=== PATIENT | male | born 1935 | race Caucasian/White ===

== ENCOUNTER 2020-03-29 11:11 | Emergency (ER) | payer MEDICARE, OTHER ==
[~2020-03-29] VITALS: Ht 175.3 cm; Wt 98.2 kg
[~2020-03-29 11:11] MED LIST: ALOG12.52 PO; AMIO200T61 PO; ASPI-845 PO; CARB-268 OP; FAMO40TA7 PO; GABA-532 PO; INSU100C4 SQ; INSU100V12 SQ; LISI-600 PO; METF-436 PO; METO25TA6 PO; ROSU40TA PO; TRAM50TA2 PO
== END 2020-03-29 12:21 | disposition home or self-care (01) ==
LOC: ER 11:12
DX: B34.9 Viral infection, unspecified (principal); Z20.828 Contact with and (suspected) exposure to other viral communicable diseases; I10 Essential (primary) hypertension; E11.9 Type 2 diabetes mellitus without complications; Z98.890 Other specified postprocedural states; Z79.82 Long term (current) use of aspirin; Z79.84 Long term (current) use of oral hypoglycemic drugs; Z79.899 Other long term (current) drug therapy
CPT/HCPCS: 36415; 87635; 99283

== ENCOUNTER 2024-11-11 02:54 | Emergency (ER) | payer MEDICARE, OTHER ==
[~2024-11-11] VITALS: Ht 175.3 cm; Wt 90.0 kg
[~2024-11-11 02:54] MED LIST changes: +ALBU90AE INH; -AMIO200T61 PO; -ASPI-845 PO; +EMPA10TA PO; +EZET10TA6 PO; -FAMO40TA7 PO; -GABA-532 PO; -LISI-600 PO; -METF-436 PO; -METO25TA6 PO; +PREG50CA65 PO; +SEMA1PEN3 SQ
--- NOTE | 2024-11-11 03:29 | ELECTROCARDIOGRAPH REPORT ---
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
[2024-11-11] MEDS: normal saline 1000ML IV soln IV ONE (03:38)
[2024-11-11] MEDS: CefTRIAXone 2gm/D5W 50ml BAG 50 ML IV ONE (03:41)
--- NOTE | 2024-11-11 03:44 | Physician Documentation ---
History of Present Illness ~ Chief Complaint: Vomiting w/diarrhea Stated Complaint: NAUSEA,VOMITING Time Seen by MD: 03:35 Primary Medical Doctor: [facility] Mode of Arrival: POV HPI Patient presents to the emergency room with nausea vomiting diarrhea. Onset of symptoms yesterday. Positive fevers. Denies sick contacts. Reports no blood in stools. Patient was found to be hypotensive by EMS and 250 cc of saline was administered with improvement of blood pressures. Patient endorses some degree of abdominal pain. Medication Reconciliation Allergies: Coded Allergies: No Known Allergies (Unverified , 11/11/24) Scheduled Alogliptin Benzoate (Alogliptin), 1 TAB PO DAILY, (Reported) Empagliflozin (Jardiance), 12.5 MG PO DAILY, (Reported) Ezetimibe (Zetia), 1 TAB PO DAILY, (Reported) Insulin Aspart (Novolog), 12 UNITS SQ TIDAC, (Reported) Insulin Detemir (Levemir), 24 UNIT SQ DAILY, (Reported) Pregabalin (Pregabalin), 1 CAPSULE PO BID, (Reported) Rosuvastatin Calcium* (Crestor*), 1 TAB PO DAILY, (Reported) Semaglutide (Ozempic), 1 MG SQ weekly, (Reported) Scheduled PRN Albuterol Sulfate (Proair Respiclick), 2 PUFFS INH Q4HPRN PRN for shortness of breath, (Reported) Carboxymethylcellulose Sodium (Artificial Tears), 1 DROP OP BID PRN for dry eyes, (Reported) Tramadol HCl (Tramadol HCl), 1 TABLET PO QID PRN for pain, (Reported) Past Medical History Past Medical History: Coronary Artery Disease, High Cholesterol, Hypertension, Diabetes Past Surgical History: orthopedic surgeries Patient History: Patient reports no known family medical history. Alcohol Use: None Drug Use: none Lives with: Spouse Lives In: Home Review of Systems All Other Systems at this time: Reviewed and Negative ROS All review of systems negative except as per HPI Physical Exam Vital Signs: RN Vital Signs have been reviewed: Yes, Temperature: 100.0, Source: Oral, Heart Rate: 80, Respiratory Rate: 16, BP: 89/47, Pulse Oximetry: 94, Weight: 90.000 General Appearance General: Patient is awake, alert, oriented x4 in no acute distress Head: Normocephalic and atraumatic. Eyes: Conjunctival normal. EOMI. PERRL. ENT: Mucous membranes dry. Neck: Supple, trachea is midline. Chest: Clear to auscultation bilaterally without rales, rhonchi, or wheezes. There is no accessory muscle use or retractions. Cardiac: RRR without murmurs, gallops, or rubs. Abd: Soft, nondistended, nontender, with normoactive bowel sounds. No guarding, rebound, or rigidity. Below exam by Dr. Campbell re-evaluation Appearance: HEENT: EOMI, PERRL, normal oropharynx without erythema or exudate, moist oral mucosa, head and face Atraumatic Neck: Trachea midline, supple Pulmonary: No respiratory distress, breath sounds equal, clear to auscultation Cardiac: RRR, no murmur, no rub, no gallop, no lower extremity edema Abdomen: NBS, soft, upper abdominal tenderness Extremities: Atraumatic, nontender Skin: Normal color, dry, no rash, normal perfusion Neuro: AAOx3, clear speech, no focal motor weakness Psych: Normal affect, normal speech, no evidence of hallucinations Progress Results/Orders Results/Orders Orders - PARAMJIT ROBLES MD Culture Blood (11/11/24 03:35) Chest,Single View (11/11/24 03:55) Ct Abdomen Pelvis (11/11/24 04:15) Ultrasound Of Abdomen (11/11/24 05:14) Completed Orders - PARAMJIT ROBLES MD Electrocardiogram (11/11/24 ) Cbc/Diff (11/11/24 03:35) MG (11/11/24 03:35) Chest,Single View (11/11/24 03:55) Normal Saline 1000ml (Sodium Chloride 10 (11/11/24 03:35) Procalcitonin (11/11/24 03:35) BMP (11/11/24 03:35) Lacticsepsis (11/11/24 03:35) Ceftriaxone 2gm/D5w 50ml Bag (Rocephin 2 (11/11/24 03:35) Troponin (Single) (11/11/24 03:46) Ct Abdomen Pelvis (11/11/24 04:15) Pathology Review (11/11/24 03:55) CMP (11/11/24 05:13) Piperacillin/Tazo 3.375gm/50ml (Zosyn 3. (11/11/24 05:15) Ultrasound Of Abdomen (11/11/24 05:14) Lactic,2hr (11/11/24 05:35) Norepinephrine 32mg/250ml Bag (Norepinep (11/11/24 06:00) Norepinephrine 8mg/ 250ml Ns (Norepineph (11/11/24 06:08) Ua W/Microscopic, Cult If Ind (11/11/24 09:30) Vital Signs 11/11/24 11/11/24 11/11/24 11/11/24 02:59 03:11 04:29 05:22 Temp 100.0 98.1 Pulse 80 81 88 Resp 18 16 18 18 B/P (MAP) 89/47 91/49 (63) 106/54 (71) Pulse Ox 94 99 97 O2 Flow Rate 2.0 2.0 11/11/24 11/11/24 11/11/24 11/11/24 06:20 06:47 06:51 06:56 Temp 98.9 98.9 Pulse 98 100 Resp 32 25 B/P (MAP) 71/38 78/58 (65) 78/58 123/63 (83) Pulse Ox 96 96 O2 Flow Rate 2.0 2.0 11/11/24 11/11/24 11/11/24 11/11/24 07:03 07:10 07:25 08:09 Temp 98.9 99.0 Pulse 94 90 Resp 26 15 B/P (MAP) 144/56 147/112 118/55 (76) 98/59 (72) Pulse Ox 98 94 O2 Flow Rate 0 2.0 11/11/24 11/11/24 11/11/24 11/11/24 08:34 09:09 09:27 09:37 Temp 99.0 99.0 101.8 Pulse 89 86 85 Resp 14 19 21 B/P (MAP) 93/53 (66) 123/69 (87) 127/69 (88) 72/46 Pulse Ox 95 95 97 O2 Flow Rate 2.0 2.0 2.0 11/11/24 11/11/24 11/11/24 11/11/24 10:39 10:45 10:55 11:53 Temp 101.2 101.0 100.8 Pulse 75 74 72 Resp 17 22 21 20 B/P (MAP) 98/58 (71) 109/59 (76) 110/59 (76) Pulse Ox 96 97 97 O2 Flow Rate 2.0 0 0 11/11/24 12:00 Temp 99.0 Pulse 71 Resp 17 B/P (MAP) 132/70 (90) Pulse Ox 99 O2 Flow Rate 2.0 Laboratory Tests Test 11/11/24 03:55 11/11/24 04:08 11/11/24 06:16 11/11/24 08:13 White Blood Count 8.2 Red Blood Count 4.05 L Hemoglobin 13.0 L Hematocrit 37.6 L Mean Corpuscular Volume 92.8 Mean Corpuscular Hemoglobin 32.0 H Mean Corpuscular Hemoglobin Concent 34.5 Red Cell Distribution Width 14.5 Platelet Count 65 L Mean Platelet Volume 9.0 Neutrophils (%) (Auto) 89.5 H Lymphocytes (%) (Auto) 6.4 L Monocytes (%) (Auto) 3.5 Eosinophils (%) (Auto) 0.2 Basophils (%) (Auto) 0.4 Neutrophils # (Auto) 7.3 Lymphocytes # (Auto) 0.5 L Monocytes # (Auto) 0.3 Eosinophils # (Auto) 0.0 Basophils # (Auto) 0.0 CBC Comment Hematology Pathologist Comment See note Sodium Level 134 L 136 Potassium Level 3.5 3.7 Chloride Level 99 103 Carbon Dioxide Level 26.8 23.7 L Anion Gap 8 9 Blood Urea Nitrogen 30 H 28 H Creatinine 2.34 H 2.22 H Estimated GFR/1.73 m2 26 28 BUN/Creatinine Ratio 12.8 12.6 Glucose Level 219 H 181 H Calcium Level 7.7 L 7.5 L Magnesium Level 1.6 Troponin I High Sensitivity 34 Albumin 2.6 L 2.6 L Procalcitonin 37.40 H Chemistry Comments Lactic Acid Level 2.7 H 2.6 H 2.7 H Total Bilirubin 4.2 H Aspartate Amino Transf (AST/SGOT) 374 H Alanine Aminotransferase (ALT/SGPT) 411 H Alkaline Phosphatase 107 Total Protein 5.8 L Globulin 3.2 Albumin/Globulin Ratio 0.8 L Test 11/11/24 09:30 11/11/24 11:52 Urine Specimen Description Potts cath Urine Color Yellow Urine Clarity Slightly cloudy Urine pH 6.0 Urine Specific [place] 1.010 Urine Protein 100 H Urine Glucose (UA) >=1000 H Urine Ketones Trace H Urine Occult Blood Moderate H Urine Nitrite Negative Urine Bilirubin Small Urine Urobilinogen 1.0 Urine Leukocyte Esterase Negative Urine RBC 0-2 Urine WBC 0-4 Urine Squamous Epithelial Cells Few Urine Amorphous Urates 3+ Urine Bacteria 1+ Urine Coarse Granular Casts 0-3 Urine Culture Indicated Not ind Volume Urine Centrifuged 10 ml Urine Comment Lactic Acid Level 1.7 Microbiology Date/Time Source Procedure Growth Status 11/11/24 06:16 Blood Hand Right Blood Culture - Preliminary NEGATIVE (LESS THAN 24 HOURS) Resulted Re-Evaluation Re-Evaluation : Re-Evaluation Time: 05:55 (Upon re-evaluation patient was sleeping comfortably) EKG/XRAY/CT/US/VASC/MRI EKG : Additional Comment EKG interpreted by myself shows time of 0328, rate 80, sinus rhythm, left axis deviation, left bundle-branch block. Medical Decision Making Findings CARE THE PATIENT WAS TRANSFERRED TO [place] FROM DR. ROBLES AT 6:00 A.M.. PER REPORT PATIENT HAS RECEIVED 3 L OF NORMAL SALINE AND WAS GIVEN IV ZOSYN. Differential diagnosis includes but is not limited to: EKG independent interpretation: Chest x-ray, single view, indication: Independent interpretation: Bibasilar linear infiltrates likely atelectasis, lungs are otherwise clear, poor inspiratory effort, normal mediastinum, normal cardiac silhouette CT scan abdomen and pelvis without IV contrast, indication: Abdominal pain Impression: 1. Gallstones and choledocholithiasis. Mild gallbladder wall edema. Findings are concerning for acute cholecystitis in the appropriate clinical setting. Right upper quadrant ultrasound recommended. 2. Nonspecific fluid-filled duodenum, enteritis not excluded. 3. Left inguinal hernia containing fat and fluid. 4. Enlarged prostate. Abdominal ultrasound, indication: Acute cholecystitis Impression: 1. Cholelithiasis and findings consistent with acute cholecystitis. Dilated common bile duct likely related to stones in the common bile duct seen on CT same date. Laboratory data independent interpretation: CBC: Normal white blood cell count 8.2, mild anemia with a hemoglobin of 13 and hematocrit 37.6. Anemia is chronic. Patient is thrombocytopenic with a platelet count of 65. This thrombocytopenia is new. CMP: BUN elevated 28, creatinine elevated 2.22, total bilirubin elevated 4.2, AST elevated at 374, ALT elevated for 11, alk-phos normal at 107 Procalcitonin: elevated 37.4 Lactic acid: 2.7 Repeat lactic acid: 2.6 Urinalysis: Emergency department course/medical decision-making: My arrival the patient's blood pressure dropped and Dr. Robles started Levophed. Patient's blood pressure has improved. Patient is on a low dose at this time. Central line will be placed. Patient will require transfer to a higher level of care for ERCP. Test results and treatment plan reviewed with the patient. IV Flagyl will be added. Consultation/communications: 8:25 A.M.: Case discussed with Dr. Katz our surgeon. Because we do not have ERCP capability here patient will likely need to be transferred. I will consult Dr. Puga to confirm. 8:35 a.m.: Case discussed with attending pathologist Dr. Puga. Patient will require ERCP and transfer. 8:35 a.m.: Request for [facility] to [facility] 9:22 a.m.: Case discussed with [facility] and report given. Awaiting a callback. 10:15 a.m.: Case discussed with [facility] and Dr. Tipton. Dr. Kramer, attending pathologist as aware of the patient and we will consult Departure Time of Disposition: 10:32 Disposition: 02 [facility]ORT [facility]M [facility] Impression: Primary Impression: Cholecystitis with cholelithiasis Qualified Codes: K80.63 - Calculus of gallbladder and bile duct with acute cholecystitis with obstruction Additional Impressions: Choledocholithiasis with acute cholecystitis Severe sepsis Ascending cholangitis Condition: Critical Education Educated: Patient Educated regarding: diagnosis, treatment Critical Care Note Total Time (mins): 70 Critical Care Note Critical conditions addressed for impending deterioration include: Cardiovascular, [employer], metabolic, renal, hepatobiliary Associated risk factors involving deterioration include: Hypotension, metabolic changes The very real possibility of a deterioration of this patient's condition required the highest level of my preparedness for sudden, emergent intervention. I provided critical care services, which included medication orders, frequent reevaluations of the patient's condition and response to treatment, ordering and reviewing test results, and discussing the case with necessary consultants. Critical care time was exclusive of necessary procedure time. The critical care time associated with the care of the patient was 70 minutes minutes and excludes time for billable procedures. Signature Scribe Signature: No Scribe Attestation: The note accurately reflects work and decisions made by me.Paramjit Robles MD 11/12/24 01:22 No PARAMJIT Lombardo MD Nov 11, 2024 03:44 SOPHIA CAMPBELL MD Nov 11, 2024 08:32
[2024-11-11 04:13] LABS: RED CELL DISTRIBUTION WIDTH 14.5 % (11.5-14.5)
[2024-11-11 04:15] LABS: MEAN PLATELET VOLUME 9.0 FL (7.4-10.4)
[2024-11-11 04:26] LABS: CREATININE 2.34 MG/DL (0.60-1.10); TOTAL CARBON DIOXIDE 26.8 MMOL/L (24-32); eCRCL 22 ML/MIN; eGFR 26 ML/MIN
--- NOTE | 2024-11-11 04:51 | RADIOLOGY REPORT ---
CHEST RADIOGRAPH Indication: SEPSIS Technique: Single frontal view of the chest was obtained Comparison: CHEST,SINGLE VIEW on DOS: 10/30/21 FINDINGS: Lines and Tubes: Median sternotomy Lungs: Mild increased interstitial prominence Pleura: No effusion. No pneumothorax. Cardiomediastinal contours: Cardiomegaly Bones: No acute osseous abnormality. IMPRESSION: Mild pulmonary vascular congestion
--- NOTE | 2024-11-11 05:11 | RADIOLOGY REPORT ---
Exam: CT CT ABDOMEN PELVIS History: abd pain Comparison Study: None Technique: Multidetector spiral CT of the abdomen and pelvis was performed from lung bases to pubic s ymphysis. Imaging was performed without intravenous contrast. Coronal and sagittal multiplanar reform ats were obtained from the axial data set by the technologist. Radiation Dose : 1. Abdomen/Pelvis: CTDIvol 29.2 mGy, DLP 1678.7 mGy*cm. Findings: Evaluation of vasculature and solid organs is limited due to lack of intravenous contrast use. Lung Bases: Lung bases are clear. Normal heart size. Coronary artery calcifications. Postsurgical ch anges in the heart. No pericardial effusion. Liver: The liver is normal in size. No focal lesions. Gallbladder and Biliary Tree: The gallbladder is packed with gallstones. The gallbladder is distende d and there is mild gallbladder wall edema. Common bile duct is dilated measuring 9 mm and there are stones in the distal common bile duct which measure up to 0.5 cm. Spleen: Unremarkable Pancreas: The pancreas is grossly unremarkable. Adrenal Glands: Unremarkable Kidneys: Kidneys are unremarkable without calculi or hydronephrosis. GI tract: The stomach is grossly normal in appearance. Nonspecific fluid-filled duodenum. The append ix is not visualized, however no inflammatory changes in the right lower quadrant to suggest acute ap pendicitis. Peritoneum/mesentery/retroperitoneum. No evidence of free intraperitoneal air. No ascites. No evidenc e of suspicious lymphadenopathy. Abdominal Wall: Unremarkable. Vasculature: The visualized abdominal aorta is normal in size and caliber. Evaluation of abdominal a nd pelvic vessels is limited due to lack of intravenous contrast. Urinary Bladder: Grossly unremarkable for degree of distention. Pelvic Organs: Enlarged prostate measuring 7.3 cm. Musculoskeletal: No aggressive focal bony lesions, acute fractures or dislocation. Multilevel lumbar spondylosis. Soft tissues: Left inguinal hernia containing fat and fluid. IMPRESSION: 1. Gallstones and choledocholithiasis. Mild gallbladder wall edema. Findings are concerning for acut e cholecystitis in the appropriate clinical setting. Right upper quadrant ultrasound recommended. 2. Nonspecific fluid-filled duodenum, enteritis not excluded. 3. Left inguinal hernia containing fat and fluid. 4. Enlarged prostate.
[2024-11-11] MEDS: piperacillin/tazo 3.375gm/50ml 50 ML IV ONE (05:19)
[2024-11-11] MEDS ORDERED: NORepinephrine 32mg/250mL bag 250 ML IV SCH (06:00)
[2024-11-11] MEDS: NORepinephrine 8mg/ 250ml NS 250 ML IV SCH (06:20)
[2024-11-11 06:39] LABS: CREATININE 2.22 MG/DL (0.60-1.10); TOTAL CARBON DIOXIDE 23.7 MMOL/L (24-32); eCRCL 23 ML/MIN; eGFR 28 ML/MIN
[2024-11-11] MEDS: normal saline 1000ml 1,000 ML IV ONE (07:10)
--- NOTE | 2024-11-11 07:13 | RADIOLOGY REPORT ---
INDICATION: suspected cholecystitis/choledoco TECHNIQUE: Multiple real-time sonographic images of the right upper quadrant were obtained. COMPARISON: CT scan of the abdomen pelvis performed same date. FINDINGS: The liver is homogeneous in echotexture. The liver measures 16.0 cm in length. No intrahep atic biliary ductal dilatation. The gallbladder wall measures 0.6 cm compatible with thickening. Multiple gallstones. The common d uct measure 0.6 cm and is dilated. No pericholecystic fluid is noted. Positive sonographic Kang's sign. The right kidney measures 10.8 cm. No hydronephrosis. The pancreas is not well visualized due to obscuration from bowel gas. The visualized portions of the IVC and aorta are grossly unremarkable. IMPRESSION: 1. Cholelithiasis and findings consistent with acute cholecystitis. Dilated common bile duct likely r elated to stones in the common bile duct seen on CT same date.
[2024-11-11] MEDS: acetaminophen 1,000mg/100ml IV 100 ML IV ONE (09:37)
[2024-11-11] MEDS: metroNIDAZOLE-Flagyl 500mg/NS 100 ML IV STA (09:37)
[2024-11-11 10:08] LABS: LEUKOCYTE ESTERASE ,URINE NEGATIVE (Neg); NITRITES, URINE NEGATIVE (Neg); OCCULT BLOOD,URINE MODERATE (Neg)
[2024-11-11 10:14] LABS: UA COLLECTION TYPE FOLEY CATH
[2024-11-11 10:15] LABS: AMORPHOUS URATES 3+; COARSE GRANULAR CAST 0-3 /LPF (NEGATIVE); SQUAMOUS EPITHELIAL CELL,UR FEW /LPF (FEW)
--- NOTE | 2024-11-11 10:40 | RADIOLOGY REPORT ---
CHEST RADIOGRAPH Indication: confirm central line placement Technique: Single frontal view of the chest was obtained Comparison: DI CHEST,SINGLE VIEW on DOS: 11/11/24, CHEST,SINGLE VIEW on DOS: 10/30/21, DI CHEST,SINGLE V IEW on DOS: 11/11/24 FINDINGS: Lines and Tubes: Median sternotomy. Right central venous catheter tip in the cavoatrial junction Lungs: Mild increased interstitial prominence Pleura: No effusion. No pneumothorax. Cardiomediastinal contours: Cardiomegaly Bones: No acute osseous abnormality. IMPRESSION: Worsening pulmonary vascular congestion
[2024-11-11] MEDS: furosemide 10 MG/1 ML 10ml inj IV ONE (10:58)
[2024-11-11 12:00] VITALS: BP 132/70; PULSE 71; RESP 17; TEMP 99; O2SAT 99
== END 2024-11-11 13:26 | disposition short-term general hospital (02) ==
LOC: ER 02:54
DX: K80.10 Calculus of gallbladder with chronic cholecystitis without obstruction (principal); K80.40 Calculus of bile duct with cholecystitis, unspecified, without obstruction; R65.20 Severe sepsis without septic shock; I25.10 Atherosclerotic heart disease of native coronary artery without angina pectoris; I10 Essential (primary) hypertension; E78.00 Pure hypercholesterolemia, unspecified; E11.9 Type 2 diabetes mellitus without complications; D64.9 Anemia, unspecified; Z79.899 Other long term (current) drug therapy
CPT/HCPCS: 36415; 71045; 74176; 76700; 80048; 80053; 81001; 83605; 83735; 84145; 84484; 85025; 87040; 93005; 96361; 96365; 96367; 96375; 99291; C1751; C1758; J0131; J0696; J1938; J2543; J3490; J7030